=== PATIENT | female | born 1935 | race Caucasian/White ===

== ENCOUNTER 2018-04-10 01:31 | Inpatient (IN) | payer MEDICARE ==
[~2018-04-10] VITALS: Ht 160 cm; Wt 48.7 kg
[2018-04-10 02:05] LABS: BASOPHILS ABSOLUTE AUTO 0.06 K/mm3 (0.00-0.23); BASOPHILS PERCENT AUTO 1 % (0-2); EOSINOPHILS PERCENT AUTO 1 % (0-6); Hematocrit 42.2 % (33.0-51.0); Hemoglobin 13.6 g/dL (11.5-16.0); IMMATURE GRAN ABSOLUTE AUTO 0.01 K/mm3 (0.00-0.10); IMMATURE GRAN PERCENT AUTO 0 % (0-1); LYMPHOCYTES ABSOLUTE AUTO 2.17 K/mm3 (0.84-5.20); LYMPHOCYTES PERCENT AUTO 27 % (21-46); MONOCYTES ABSOLUTE AUTO 0.78 K/mm3 (0.16-1.47); MONOCYTES PERCENT AUTO 10 % (4-13); Mean Corpuscular HGB 32.7 pg (26.0-34.0); Mean Corpuscular HGB Conc 32.2 g/dL (31.5-36.5); Mean Corpuscular Volume 101 fL (80-100); Mean Platelet Volume 10.7 fL (9.1-12.4); NEUTROPHILS ABSOLUTE AUTO 4.83 K/mm3 (1.96-9.15); NEUTROPHILS PERCENT AUTO 61 % (41-73); Platelet Count 248 K/mm3 (150-400); RDW Coefficient Variation 12.6 % (11.7-14.2); RDW Standard Deviation 47.4 fL (35.1-46.3); Red Blood Cell Count 4.16 M/mm3 (3.80-5.20); White Blood Cell Count 7.95 K/mm3 (4.00-11.30)
[2018-04-10 02:07] LABS: PCO2 Venous 81.1 mmHg (38-42); PO2 Venous 55.2 mmHg (38-42); pH Blood Venous 7.22 (7.34-7.37)
[2018-04-10] MEDS ORDERED: ALEN70 PO (02:13)
[2018-04-10] MEDS ORDERED: ASPI81CH PO (02:14)
[2018-04-10] MEDS ORDERED: NAPR220 PO (02:16)
[2018-04-10] MEDS ORDERED: Hair, Skin & N1 EACH PO (02:16)
[2018-04-10] MEDS ORDERED: ALBU90OI61 INH (02:17)
[2018-04-10] MEDS ORDERED: TRAZ50 PO (02:18)
[2018-04-10] MEDS ORDERED: MIRT15 PO (02:18)
[2018-04-10 02:38] LABS: International Normalized Ratio 0.98; Prothrombin Time Results 10.4 Sec (9.7-11.5)
[2018-04-10 02:39] LABS: Troponin I 0.043 ng/mL (0.000-0.040)
[2018-04-10 02:40] LABS: Albumin, Blood 3.7 g/dL (3.4-5.0); Albumin/Globulin Ratio 1.1 (0.8-1.8); Bilirubin, Total 0.4 mg/dL (0.1-1.0); Bun/Creatinine Ratio 16.2 (12.0-20.0); Calcium, Blood 10.8 mg/dL (8.5-10.1); Creatinine, Blood 1.05 mg/dL (0.40-1.00); Globulin, Blood 3.5 g/dL (2.2-4.0); Potassium, Blood 4.1 mmol/L (3.5-5.5); Total Protein, Blood 7.2 g/dL (6.4-8.2)
[2018-04-10 04:47] LABS: Free Thyroxine 1.01 ng/dL (0.70-1.60)
[2018-04-10 04:52] LABS: Thyroid Stimulating Hormone 3.43 uIU/mL (0.360-4.800)
[2018-04-10] MEDS ORDERED: Simvastatin20 MG PO (05:13)
[2018-04-10] MEDS ORDERED: BUDE10.22 INH (05:14)
--- NOTE | 2018-04-10 07:15 | NUR ---
SUMMARY PT ARRIVED TO ICU 6 AT 0455 WITH AND DAUGHTER AT BEDSIDE. PT CONFUSED ON LOCATION AND SITUATION BUT CALM AND COOPERATIVE WITH CARE. FAMILY REPORTS BASELINE OF ALZHEIMERS. ADMISSION HISTORY AND MED REC COMPLETED WITH ASSISTANCE FROM PT'S DAUGHTER AND . PT ON DILTIAZEM DRIP, HR 100'S. BP STABLE. 4 LPM NASAL CANNULA, 02 SAT IN 90'S. PT NOTED TO QUICKLY DESATURATE TO MID-LOW 80'S WHEN OXYGEN IS TAKEN OFF. PT REQUIRES FREQUENT REMINDERS ON PLAN OF CARE, NEED FOR OXYGEN. PT AND FAMILY EDUCATED. CALL LIGHT IN REACH, BED ALARM ON. DAUGHTER AT BEDSIDE THROUGHOUT THE MORNING. REPORT GIVEN TO KYRA LARSEN.
--- NOTE | 2018-04-10 08:07 | NUR ---
SHIFT ASSESSMENT PATIENT SLEEPING SOUNDLY UPON ENTERING ROOM. DAUGHTER AT BEDSIDE. PATIENT ALERT AND ORIENTED TO PERSON, SELF, TOWN, FAMILY, AND FOLLOWING DIRECTIONS. PATIENT HAS HISTORY OF ALZEIMERS AND IS FORGETFUL AT TIMES. PATIENT CALM, COOPERATIVE AT THIS TIME. PATIENT AFEBRILE. PATIENT DENIES PAIN OR DISCOMFORT AT THIS TIME. PATIENT 02 DECREASED FROM 4 L NC TO 3 L NC AND IS SATTING WELL. LUNGS CLEAR IN UPPER LOBES, DIMINISHED WITH FINE CRACKLES IN BILAT LOWER LOBES. PATIENT HAS OCCASIONAL, NONPRODUCTIVE COUGH. PATIENT IN A.FIB, HR 90S TO 1-TEENS. CARDIZEM DRIP AT 5 MG/ HOUR. BP STABLE- MAP OVER 60. PULSES STRONG. 1+ EDEMA TO RLE- FAMILY STATES THIS IS CHRONIC. ABDOMEN SOFT, NONTENDER, WITH HYPOACTIVE BS. WNL. SKIN IS DRY/ FRAGILE, APPEARS CLEAN/ DRY/ INTACT. BED LOW, CALL LIGHT IN REACH. WILL CONTINUE TO MONITOR PATIENT FREQUENTLY THROUGHTOUT SHIFT.
[2018-04-10] MEDS ORDERED: STIOLTO RESPIMAT4 GM INH (09:45)
[2018-04-10] MEDS ORDERED: ALBU2.5V5 INH (09:47)
[2018-04-10 09:57] LABS: Source, Urine Clean Catch
[2018-04-10 10:01] LABS: Appearance, Urine Clear (Clear); Bilirubin, Urine Neg (Neg); Blood, Urine Neg (Neg); Color, Urine Yellow (P-Yellow); Glucose Qualitative, Urine Neg (Neg); Ketones, Urine Neg (Neg); Leukocyte Esterase, Urine 1+ (Neg); Nitrite, Urine Neg (Neg); Protein, Urine Neg (Neg); Urobilinogen, Urine NORM (Normal)
[2018-04-10 10:17] LABS: Bacteria Rare /hpf; Red Blood Cells, Urine 0-2 /hpf (0-2); Squamous Epithelial Cells Few /hpf (Few); White Blood Cells, Urine 0-2 /hpf (0-5)
[2018-04-10 10:34] LABS: Hematocrit 41.5 % (33.0-51.0); Hemoglobin 13.5 g/dL (11.5-16.0); Mean Corpuscular HGB 32.5 pg (26.0-34.0); Mean Corpuscular HGB Conc 32.5 g/dL (31.5-36.5); Mean Corpuscular Volume 100 fL (80-100); Platelet Count 232 K/mm3 (150-400); RDW Coefficient Variation 12.6 % (11.7-14.2); RDW Standard Deviation 46.7 fL (35.1-46.3); Red Blood Cell Count 4.15 M/mm3 (3.80-5.20); White Blood Cell Count 7.06 K/mm3 (4.00-11.30)
[2018-04-10 10:49] LABS: Troponin I 0.084 ng/mL (0.000-0.040)
[2018-04-10 10:54] LABS: Albumin, Blood 3.5 g/dL (3.4-5.0); Albumin/Globulin Ratio 0.9 (0.8-1.8); Bilirubin, Total 0.5 mg/dL (0.1-1.0); Bun/Creatinine Ratio 15.5 (12.0-20.0); Calcium, Blood 10.4 mg/dL (8.5-10.1); Creatinine, Blood 1.03 mg/dL (0.40-1.00); Globulin, Blood 3.7 g/dL (2.2-4.0); Potassium, Blood 4.2 mmol/L (3.5-5.5); Total Protein, Blood 7.2 g/dL (6.4-8.2)
--- NOTE | 2018-04-10 12:24 | NUR ---
DR. ATKINS IN TO SEE PATIENT.
--- NOTE | 2018-04-10 12:41 | NUR ---
PATIENT SITTING IN BED WATCHING TV. PATIENT CONTINUES TO NEED REDIRECTING NOT TO REMOVE LINES AND CORDS. PATIENT AFEBRILE. PATIENT DENIES PAIN. PATIENT SATTING WELL ON 1 L NC. PATIENT IN A.FIB, HR 70S TO 90S. BP STABLE. NORMOACTIVE BS NOTED. NO OTHER ACUTE CHANGES AT THIS TIME. WILL CONTINUE TO MONITOR.
[2018-04-10 12:54] LABS: PCO2 Arterial 43.8 mmHg (35-45); PO2 Arterial 74.6 mmHg (80-100); pH Blood Arterial 7.44 (7.35-7.45)
--- NOTE | 2018-04-10 13:32 | NUR ---
ECHOCARDIOGRAM COMPLETE
--- NOTE | 2018-04-10 15:28 | NUR ---
SHIFT ASSESSMENT PATIENT REMAINED COOPERATIVE THROUGHOUT SHIFT. PATIENT CONTINUED TO NEED FREQUENT REMINDING NOT TO PULL AT LINES/ CORDS OR CRAWL OUT OF BED. PATIENT CONTINUES TO BE FORGETFUL BUT ORIENTED TO SELF, FAMILY, FOLLOWING DIRECTIONS. PATIENT HAS HAD NO COMPLAINTS OF PAIN. PATIENT HAS REMAINED AFEBRILE. PATIENT IS AMBULATING WELL WITH 1 PERSON ASSIST TO TOILET. PATIENT DECREASED FROM 4 L NC AT BEGINNING OF SHIFT TO 1 L NC- PATIENT CONTINUES TO SAT WELL. PATIENT REMAINS IN A.FIB. PATIENT CONVERTED FROM CARDIZEM DRIP TO PO. HR AND BP HAVE BEEN STABLE. GI WNL. WNL. NO CHANGES IN SKIN. PATIENT HAS BEEN REPOSITIONING SELF IN BED. IV SALINE LOCKED. URINE CULTURE SENT THIS SHIFT. ECHO COMPLETED THIS SHIFT. PATIENT HAD SHOWER. FAMILY HAS BEEN IN AND OUT ALL DAY. PATIENT CURRENTLY HAS NO COMPLAINTS AT THIS TIME. PATIENT WILL BE TRANSFERRING TO MEDICAL FLOOR, ROOM 348. REPORTS GIVEN TO ASSUMING NURSE.
--- NOTE | 2018-04-10 15:52 | NUR ---
PATIENT TRANSFERRED SUCCESSFULLY TO MEDICAL FLOOR, ROOM 348. PRIMARY NURSE AND PRE OWNED SALES CONSULTANT ASSUMED. FAMILY FOLLOWED BEHIND.
--- NOTE | 2018-04-10 17:53 | NUR ---
SHIFT SUMMARY PT WAS ICU XFER THIS SHIFT, NO ACUTE CHANGES SINCE ASSUMING CARE, FAMILY HAS REMAINED AT BEDSIDE SINCE RECEIVING PT. PT IS UP IN CHAIR EATING DINNER AT THIS TIME, WILL CONT TO JESSE UNTIL REPORT GIVEN TO FRANCISCO JAVIER RN.
[2018-04-10 18:43] LABS: Troponin I 0.065 ng/mL (0.000-0.040)
--- NOTE | 2018-04-11 05:36 | NUR ---
SHIFT SUMMARY PT VERY "BUSY", FIDGETS WITH EVERYTHING NONSTOP. CONFUSED. THIS NURSE SPENT THE MAJORITY OF THE SHIFT IN THIS PT'S ROOM. PT HAS ALZHEIMER'S AT BASELINE AND ACCORDING TO FAMILY THIS HAS BEEN WORSENING RECENTLY. PT BECAME MORE AND MORE AGITATED THE NIGHT WENT ON. DID NOT SLEEP ALL THROUGH THE NIGHT. CONSTANTLY ATTEMPTING TO GET OOB. ALWAYS FIXATED ON SOMETHING, "GOING TO THE LIVING ROOM" OR "LOOKING FOR HER PURSE". EACH TIME PT ATTEMPTED TO GET UP SHE BECAME VERY SOB. BREATHING BECAME LABORED. PT DOES NOT FOLLOW DIRECTIONS WELL. MOSTLY MOUTH BREATHS SO OXYGEN NOT EFFECTIVE. PT ALSO REMOVES OXYGEN AT TIMES. NOTIFIED DR. KENT. ORDER FOR 2 MG IV HALDOL. GAVE 2 MG IV HALDOL. COMPLETELY INEFFECTIVE. PT CONTINUED TO BECOME MORE WORKED UP AND THIS CONTINUED HER RESPIRATORY STATUS WORSENED. RESPIRATIONS 28-30, WHEEZES HEARD AUDIBLY AT BEDSIDE. CALLED RT TO ROOM. BREATHING TX GIVEN. NOT VERY HELPFUL. NOTIFIED DR. KENT AGAIN. NEW ORDER FOR 0.5 MG ATIVAN X 1 NOW. ATIVAN GIVEN. PT APPEARS TO BE CALMING DOWN. RESPIRATIONS DECREASING. STILL ELEVATED BUT DOWN TO APPROX 20. LUNG SOUNDS WHEEZY IN UPPER LOBES, MINIMAL FINE CRACKLES IN BASES. PT ON 1-3 L O2 NC THROUGHOUT THE NIGHT, DEPENDING ON HOW ANXIOUS PT WAS. DAUGHTER AT BEDSIDE. ACCORDING TO DAUGHTER PT IS SUPPOSED TO BE USING HOME O2 BUT HAS BEEN NONCOMPLIANT. PT IS ALSO A CURRENT SMOKER. PY ALSO ON TELE, SR W/ PAC'S IN THE 90'S. WHEN PT BECAME VERY WORKED UP HEART RATE WENT UP INTO THE 110'S. PT DENIED PAIN THROUGHOUT THE NIGHT. WANTED TO GO HOME. FAMILY REQUESTED TO SPEAK TO OVERLOCK OPERATOR REGARDING CONCERN FOR SAFE DISCHARGE. OVERLOCK OPERATOR CONSULT PLACED. PT FINALLY RESTING IN BED AT THIS TIME. WILL HOLD OFF ON MORNING FOSAMAX FOR NOW AND INFORM DAY RN.
--- NOTE | 2018-04-11 17:12 | NUR ---
SHIFT SUMMARY PT SLEPT LATE AFTER REPORTED BAD NIGHT (VIA NOC RN & DAUGHTER), PT WAS VERY DISORIENTED W/GARBLED SPEECH UPON WAKING. AFTER A SHORT TIME PT SLEPT ANOTHER FEW HOURS. FAMILY LEFT BEDSIDE, PT BECAME VERY DIFFICULT WHEN WAKING ABOUT 1330, WAS 1:1 W/ASSISTANCE FROM MUD MIXER. CALL WAS MADE TO DR ATKINS, REC ORDERS FOR ZYPREXA. FAMILY REENTERED AND WAS ABLE TO DISTRACT PT SO MEDICATION DID NOT HAVE TO BE ADMINISTERED. PT IS BEDRESTING AT THIS TIME W/FAMILY AT BEDSIDE, WILL CONT TO MONITOR UNTIL REPORT GIVEN TO NOC RN.
--- NOTE | 2018-04-11 22:18 | NUR ---
RESTRAINTS PT BECAME VERY AGITATED. PT IS VERY CONFUSED, THINKS SHE IS AT HOME. WANTS TO GO TO HER BEDROOM AND TO THE BATHROOM. REFUSING TO STAY IN BED. PULLING AND FIDGETING WITH EVERYTHING. ATTEMPTED TO KICK BUILDING COMPONENTS DESIGNER. JESSIE VEST PLACED AND PT ASSISTED INTO BED. 10 MG IM ZYPREXA GIVEN. PT APPEARS TO HAVE CALMED DOWN FOR NOW. WILL CONTINUE TO MONITOR.
--- NOTE | 2018-04-12 02:31 | NUR ---
AT APPROX 0000 PT CONVERTED INTO AFIB WITH A HEART RATE IN THE 130'S. BY 0015 PT'S HEART RATE HAD INCREASED TO THE 140'S. PT HAD BEEN AGITATED SO FAR THIS SHIFT. FREQUENTLY WANTING TO GET OUT OF BED. XYPREXA 10 MG AND HALDOL 2 MG GIVEN WHICH APPEARED EFFECTIVE AT FIRST BUT PT WAS UP AND AGITATED AGAIN ONLY 5 [address]. [address] KENT. NEW ORDER TO GIVE LOPRESSOR 5 MG IV AND RECHECK IN 30 MINUTES. LOPRESSOR GIVEN, 30 MINUTES LATER PT'S HEART RATE HAD COME DOWN TO THE 120'S. PT REMAINED VERY AGITATED. NOTIFIED DR. KENT AGAIN. HE ORDERED TO GIVE ONE MORE DOSE OF 5 MG IV METOPROLOL AND 0.5 MG IV ATIVAN X 1. GAVE SECOND DOSE OF METPROLOL AND SINGLE DOSE OF ATIVAN. PT FINALLY CALMED DOWN AND RESTED. CALLED Replise AT 0226 AND HEART RATE WAS AFIB 110. PT RESTING IN BED, APPEARS TO BE SLEEPING AT THIS TIME. WILL CONTINUE TO MONITOR.
--- NOTE | 2018-04-12 04:25 | NUR ---
SHIFT SUMMARY PT HAD DIFFICULT NIGHT AGAIN TONIGHT. VERY CONFUSED AND VERY AGITATED. DIFFICULT TO REDIRECT PT WHEN PT HAS SOMETHING IN HER HEAD THAT SHE NEEDS TO DO. PLACED JESSIE FOR APPROX 20 MINUTES AND THEN REMOVED, PT APPEARED TO BECOME EVEN MORE AGITATED WITH IT IN PLACE. XYPREXA 10 MG GIVEN FIRST FOR AGITATION. THIS MEDICATION WAS NOT ONLY INEFFECTIVE, IT APPEARED TO MAKE THE PT WORSE. SHORTLY AFTER ADMINISTERED PT APPEARD TO BE HALLUCINATING AND WAS REACHING UP INTO THE ALEXSANDER TRYING TO GRAB THINGS. HALDOL GIVEN SHORTLY AFTER. ALSO COMPLETELY INEFFECTIVE. ONLY AFTER GIVING PT 0.5 MG IV ATIVAN WAS SHE ABLE TO CALM DOWN AND GO TO SLEEP. PT CONVERTED BACK INTO AFIB THIS EVENING, STABLE RATE AT THIS TIME. SEE PREVIOUS NOTE. PT PULLS OFF OXYGEN AT TIMES AND REFUSES TO LET YOU REPLACE IT. LUNG SOUNDS WHEEZY. RESPIRATORY STATUS WORSENS WHENEVER PT GETS WORKED UP OR EXERTS HERSELF. BREATHING BECOMES VERY LABORED AT TIMES. HOWEVER BREATHING WAS BETTER THIS EVENING THAN THE SHIFT BEFORE. DAUGHTER AT BEDSIDE THROUGHOUT THE NIGHT. PT RESTING AT THIS TIME. WILL CONTINUE TO MONITOR AND REPORT TO DAY RN.
--- NOTE | 2018-04-12 13:07 | NUR ---
PT HR IN THE 130S DR. ADAMS CALLED IN REGAURDS OF THE PTS HR. PT HAS CONTINUES TO HAVE A HR IN THE 130S AFTER HER 1130 CARDIZEM DOSE. ORDERED TO GIVEN 25MG METOPEROL NOW AND THEN DAILY TO REPLACE THE 12.5 MG METOPEROL.
--- NOTE | 2018-04-12 15:01 | NUR ---
METOPEROL HELD METOPEROL HELD FOR A LOW BP OF106/61. PT HR DECREASED TO 111 PER PHYSICIAN OFFICE REP ON ITS OWN. WILL CONTINUE TO MONITOR.
--- NOTE | 2018-04-12 16:02 | NUR ---
BP 90/62 DR. ADAMS CALLED & INFORMED OF PT BLOOD PRESSURE. PT CONTINUES TO HAVE AN ELEVATED HR OF 108, HOWEVER CARDIZEM WILL BE HELD DUE TO PT BP. DR. ADAMS STATED THAT HE SPOKE WITH THE PTS SPOUSE, WHO IS WANTING TO MOVE TOWARDS COMFORT CARE INSTEAD OF TREATMENT. WILL CONTINUE TO MONITOR PT.
--- NOTE | 2018-04-12 17:09 | NUR ---
Mrs. Ferro was surrounded by friends and family. She was sitting in chair and appears quite frail. She was talkative, but confused and had trouble tracking conversation. She wanted me to pray for her and I was honored to comply. Met with dtr, Anni, outside of room. She was tearful, but appropriate. Anni and pt's spouse both tell me they understand pt needs to be placed in facility for 24/7 care. Anni responded well to gentle university counselor and comfort. This family will benefit from continued emotional support and comfort. I will continue to visit as schedule permits.
--- NOTE | 2018-04-12 17:43 | NUR ---
SHIFT SUMMARY PT WOKE AT 1200 AND HAS BEEN UP IN [place]IAR SINCE. PT A&O TO SELF & FAMILY. PT REPEATEDLY ASKS TO GO HOME. PT HAS BEEN IN AFIB-AFLUTTER THROUGHOUT THE DAY. RATE IN THE 100-130S. MANUAL HR TAKEN OF 108. PT AFTERNOON BP 90/62. SCHEDULED CARDIZEM HELD. DR. HERNANDEZ. FAMILY DISCUSSED COMFORT MEASURES WITH DR. ADAMS & [facility] NURSE, KASIA. FAMILY PLANS TO REVISIT DISCUSSION IN THE MORNING. NO OTHER CHANGES IN ASSESSMENT AT THIS TIME. OTHER VITALS STABLE. WILL CONTINUE TO MONITOR UNTIL TURNOVER IS COMPLETE.
--- NOTE | 2018-04-13 03:53 | NUR ---
SHIFT SUMMARY PT ADDMITTED FOR COPD WITH ACUTE EXACERBATION. DNR. REGULAR DIET. PT IS SAFE TO AMBULATE WITH SBA. TELE-A-FIB 100-130S, AWARE. XARELTO. 20 G IV TO R FA. 1 PERSON ASSIST WITH TRANSFERS AND NEED FOR VERBAL CUES DUE TO INCREASED CONFUSION AT NIGHT. 3L O2 VIA NC. FAMILY IS CONSIDERING COMFORT CARE PER SHIFT REPORT. THE PT PRESENTED TO THE ED WITH C/O SOB. HISTORY OF COPD AND ALZHEIMER DEMENTIA. THE PT NOTED TO HAVE ACUTE ON CHRONIC RESPIRATORY FAILURE DUE TO ACUTE COPD EXACERBATION AND CHF. PER REPORT PT NOTED TO SHOW EVIDENCE OF STEROID INDUCED PSYCHOSIS. THE PT IS IN NEED OF PLACEMENT DUE TO THE FAMILY BEING UNABLE TO CARE FOR THE PT DUE TO INCREASING COGNITIVE IMPAIRMENT. THE PT WAS AWAKE AND BUSY AT THE BEGINNING OF SHIFT FREQUENTLY GETTING OUT OF CHAIR AND THEN BED AFTER BEING PLACED IN BED. EASILY ABLE TO REDIRECT PT TO SAFETY. PT DID WAKE THIS NIGHT AND GET OUT OF BED TO VOID AND WAS MUCH MORE DIFFICULT TO REDIRECT BUT EVENTUALLY ABLE TO ASSIST PT TO VOID. THE PT GOT BACK INTO BED FIDGETED WITH SOME THINGS ON HER BEDSIDE TABLE AND IS BACK TO SLEEP. DAUGHTER CAME IN EARLY IN THE SHIFT AND OPTED NOT TO SEE PT PT WAS CALM AND PLEASENT. DAUGHTER WAS WORRIED THAT PT WOULD BECOME AGITATED. PT APPEARS TO BE SLEEPING COMFORTABLY AT THIS TIME WITH NO APPARENT SIGNS OF ACUTE DISTRESS. FREQUENT VISUAL CHECKS PT DOES NOT USE CALL LIGHT APPROPRIATELY. BED ALARM FOR SAFETY.
--- NOTE | 2018-04-13 10:36 | NUR ---
This pt. gave consent to this student nurse to assist care on 04/14/18.
[2018-04-13] MEDS ORDERED: CEFP200 PO (12:10)
[2018-04-13] MEDS ORDERED: DOCU100 PO (12:11)
[2018-04-13] MEDS ORDERED: METO25ER PO (12:12)
[2018-04-13] MEDS ORDERED: QUET25 PO ×2 (12:12→12:13)
[2018-04-13] MEDS ORDERED: PRED10 PO (12:14)
--- NOTE | 2018-04-13 14:09 | NUR ---
DISCHARGE DISCHARGE MEDICATIONS AND INSTRUCTIONS EXPLAINED TO PATIENT AND PATIENT'S FAMILY. THEY STATED UNDERSTANDING. IV REMOVED WITHOUT DIFFICULTY. BELONGINGS WITH PATIENT. PATIENT TRANSFERED TO PRIVATE VEHICLE VIA WHEELCHAIR.
== END 2018-04-13 13:38 | disposition hospice, home (50) | DRG 189 ==
LOC: ER 01:31 → MEDS 03:05 → ICUW 03:05 → ICUE 04:55 → MEDS 05:05 → ICUE 12:23 → MEDS 15:38 → ENPENDDIS 04-13 10:30 → MEDS 04-13 13:38
PROVIDERS: Emergency Medicine; Internal Medicine; ADMIT Internal Medicine
DX: J96.21 Acute and chronic respiratory failure with hypoxia (principal); I50.33 Acute on chronic diastolic (congestive) heart failure; J44.1 Chronic obstructive pulmonary disease with (acute) exacerbation; I24.8 Other forms of acute ischemic heart disease; E87.2 Acidosis; J96.22 Acute and chronic respiratory failure with hypercapnia; I48.91 Unspecified atrial fibrillation; I35.0 Nonrheumatic aortic (valve) stenosis; G30.9 Alzheimer's disease, unspecified; F02.80 Dementia in other diseases classified elsewhere, unspecified severity, without behavioral disturbance, psychotic disturbance, mood disturbance, and anxiety; Z66 Do not resuscitate; F19.959 Other psychoactive substance use, unspecified with psychoactive substance-induced psychotic disorder, unspecified; M81.0 Age-related osteoporosis without current pathological fracture; F17.210 Nicotine dependence, cigarettes, uncomplicated; Z99.81 Dependence on supplemental oxygen; Z79.82 Long term (current) use of aspirin; Z79.899 Other long term (current) drug therapy
CPT/HCPCS: 36415; 36600; 71046; 80053; 81001; 82550; 82803; 83735; 83880; 84439; 84443; 84484; 85025; 85027; 85610; 85730; 87086; 90686; 93005; 93010; 93306; 94640; 94760; 96365; 96366; 96375; 97162; 97530; 99285-25; J0696; J1630; J1940; J2060; J2930; J7050